=== PATIENT | female | born 2000 | race Caucasian/White ===

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

== ENCOUNTER 2018-03-12 08:57 | Day surgery (SDC) | payer BC ==
[2018-03-12] MEDS ORDERED: FENTAnyl 50 MCG/ML VIAL (10:49)
[2018-03-12] MEDS ORDERED: PROPOFOL 20 ML (10:49)
[2018-03-12] MEDS ORDERED: MIDAZOLAM 1 MG/ML 2 ML INJ (10:49)
== END 2018-03-12 13:18 | disposition home or self-care (01) ==
LOC: GIL 08:57
DX: K29.70 Gastritis, unspecified, without bleeding (principal); K21.9 Gastro-esophageal reflux disease without esophagitis; J45.909 Unspecified asthma, uncomplicated
CPT/HCPCS: 43239; 84703; 88305; 88312